=== PATIENT | female | born 1980 | race Caucasian/White ===

== ENCOUNTER 2016-11-12 10:23 | Emergency (ER) | payer OTHER ==
--- NOTE | 2016-11-12 10:59 | EDM.PDOC ---
ED HPI GENERAL MEDICAL PROBLEM - General Chief Complaint: General Stated Complaint: PAIN IN THE BACK OF HER NECK Time Seen by Provider: 11/12/16 10:45 - History of Present Illness INITIAL COMMENTS - FREE TEXT/NARRATIVE: HISTORY AND PHYSICAL: History of present illness: The patient is a 36-year-old female who follows with both our pain clinic, our family practice clinic and Dr. Cameron, as well as bone and joint specialist in [place] for lumbar back problems and presents today with a one-week history of pain/pressure at her left posterior neck and occipital area that radiates up into her scalp and down her left arm. The patient describes the discomfort as an aching pressure-like sensation in the posterior neck and it radiates up to the skull and it is worse with certain movements such as turning her head to the left. She has no diffuse headache no visual changes no neurosensory changes in her extremities and no recent trauma and no nausea or vomiting. The patient says that intermittently she will have a shooting nerve like pain down the posterior aspect of her left arm and she does feel little bit weaker in the arm but it is not that significant. She is a true being the weakness more to her discomfort. She has been using 400 mg of ibuprofen for pain and has not followed up with any of her providers for this. 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 The patient was more concerned because the symptoms have not abated over the last one week Review of systems: As per history of present illness and below otherwise all systems reviewed and negative. Past medical history: As per history of present illness and as reviewed below otherwise noncontributory. Surgical history: As per history of present illness and as reviewed below otherwise noncontributory. Social history: No reported history of drug or alcohol abuse. Family history: As per history of present illness and as reviewed below otherwise noncontributory. Physical exam: Gen.: Well-developed well-nourished female who is nontoxic and moves easily in the ED without distress and vital signs have been reviewed by me HEENT: Atraumatic, normocephalic, pupils reactive, negative for conjunctival pallor or scleral icterus, mucous membranes moist, throat clear, neck supple, nontender, trachea midline. TMs are normal bilaterally, there are no midline step-offs tenderness or defects of the cervical spine but there is some reproducible tenderness when I palpate the trapezius on the left as well as the cervical paraspinals on the left. There is no upper back tenderness in the musculature and no scapular tenderness. The patient has full range of motion of the left upper extremities without defects or deficits. On palpation of the scalp on the left there is some mild tenderness but there is no occipital groove tenderness on discrete palpation of this region. Mastoid tenderness or redness Lungs: Clear to auscultation, breath sounds equal bilaterally, chest nontender. Heart: S1S2, regular rate and rhythm no overt murmurs Back: There are no midline step-offs tenderness defects of the thoracic or lumbar spine and no CVA tenderness Pelvis: Stable nontender. Genitourinary: Deferred. Rectal: Deferred. Extremities: Atraumatic, negative for cords or calf pain full range of motion without any defects or deficits. Neurovascular unremarkable. Neuro: Awake, alert, oriented. Cranial nerves II through XII unremarkable. Cerebellum unremarkable. Motor and sensory unremarkable throughout. Exam nonfocal. On my evaluation I did not note any motor strength discrepancies right versus left and normal tone is throughout the upper extremities Diagnostics: CT scan of the head and cervical spine Therapeutics: [] I discussed with the patient that we perform CT scans but that she did not meet criteria for MRI and that at this point we might be able to gain some valuable information performing scans. She is interested in doing that and as she took some ibuprofen at home where going to hold off any more medications at this time as she is driving herself home. I did advise her that I may not get to the bottom of this problem but that we could do the testing that we had available here and obtain what information we can. She is happy with this plan. I did discuss all testing results with the patient and she states she has an appointment with Dr. Cameron in about a half an hour and I recommended that she go there. Patient does have Flexeril at home but she is only taking 5 mg a dose and she does not want a new prescription she would like to just increase the dose to the 10 mg and see how she does. Impression: Cervical muscle spasms/pain with episodic radiculopathy stable Definitive disposition and diagnosis as appropriate pending reevaluation and review of above. occipital area Pain Score (Numeric/FACES): 7 Left Side of Occupital Area Pain Score (Numeric/FACES): 5 - Related Data Allergies Allergy/AdvReac Type Severity Reaction Status Date / Time Seasonal allergies Allergy Itching Uncoded 11/12/16 10:34 Home Meds: Home Meds . 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: Musculoskeletal History: Reports: Other (See Below) Other Musculoskeletal History: piriformes of left thigh Social & Family History - Family History Family Medical History: Noncontributory - Tobacco Use Smoking Status *Q: Never Smoker - Caffeine Use Caffeine Use: Reports: Coffee Caffeine Use Comment: 1 cup daily - Alcohol Use Days Per Week of Alcohol Use: 0 Number of Drinks Per Day: 0 Total Drinks Per Week: 0 - Recreational Drug Use Recreational Drug Use: No Drug Use in Last 12 Months: No ED ROS GENERAL - Review of Systems Review Of Systems: ROS reveals no pertinent complaints other than HPI. ED EXAM, GENERAL - Physical Exam Exam: See Below (See dictation) Course - Vital Signs Last Recorded V/S: Last Vital Signs Temp 36.8 C 11/12/16 12:08 Pulse 78 11/12/16 12:08 Resp 18 11/12/16 12:08 BP 125/78 11/12/16 12:08 Pulse Ox 100 11/12/16 12:08 - Orders/Labs/Meds Orders: Active Orders 24 hr Category Date Time Status Cervical Spine wo Cont [CT] Stat Exams 11/12/16 10:58 Taken Head wo Cont [CT] Stat Exams 11/12/16 10:58 Taken Departure - Departure Time of Disposition: 13:04 Disposition: Home, Self-Care 01 Condition: Good Clinical Impression: Cervical radiculopathy, Cervical muscle pain - Discharge Information Forms: ED Department Discharge Additional Instructions: The following information is given to patients seen in the emergency department who are being discharged to home. This information is to outline your options for follow-up care. We provide all patients seen in our emergency department with a follow-up referral. The need for follow-up, as well as the timing and circumstances, are variable depending upon the specifics of your emergency department visit. If you don't have a primary care physician on staff, we will provide you with a referral. We always advise you to contact your personal physician following an emergency department visit to inform them of the circumstance of the visit and for follow-up with them and/or the need for any referrals to a consulting specialist. The emergency department will also refer you to a specialist when appropriate. This referral assures that you have the opportunity for followup care with a specialist. All of these measure are taken in an effort to provide you with optimal care, which includes your followup. Under all circumstances we always encourage you to contact your private physician who remains a resource for coordinating your care. When calling for followup care, please make the office aware that this follow-up is from your recent emergency room visit. If for any reason you are refused follow-up, please contact the [facility] emergency department at and ask to speak to the emergency department charge nurse. [facility] Primary care- Internal [place] [address] Use the Flexeril that you have at the appropriate dose and add ibuprofen. Please go to your appointment with Dr. Ortiz today and return to ER as needed and as discussed - My Orders Last 24 Hours: My Active Orders 11/12/16 10:58 Cervical Spine wo Cont [CT] Stat Head wo Cont [CT] Stat - Assessment/Plan Last 24 Hours: My Active Orders 11/12/16 10:58 Cervical Spine wo Cont [CT] Stat Head wo Cont [CT] Stat
[2016-11-12 13:13] VITALS: BP 135/67
--- NOTE | 2016-11-12 14:32 | CT ---
EXAM DATE: 11/12/16 PATIENT'S AGE: 36 Patient: LACY FERNANDEZ Facility: [place], [place] Site . Site : 1980 Study: CT Spine Cervical -11/12/2016 12:14:49 PM Ordering Physician: Gabriella Matthews Final Report: HISTORY: Pain back of head, left-sided numbness. TECHNIQUE: The cervical spine was scanned axial plane without IV contrast. Reconstructed bone windows were obtained. Sagittal reconstructions were performed. FINDINGS: Prevertebral soft tissues are normal. The thyroid is unremarkable. No apical pneumothorax. There is decreased lordosis present. There is mild uncovertebral joint arthropathy at C2-3, C3-4 and C4-5. No fracture lines are seen. No dramatic subluxation. IMPRESSION: 1. Loss of lordosis. This may be a result of muscle spasm versus positioning. 2. Mild uncovertebral joint arthropathy at C2-3, C3-4 and C4-5. 3. No acute fracture or traumatic subluxation. Dictated by Loretta Britt MD @ 11/12/2016 12:37:28 PM Dictated by: Loretta Britt MD @ 11/12/2016 12:37:58 (Electronic Signature) Report Signed by Proxy. JOSUE
--- NOTE | 2016-11-12 14:32 | CT ---
EXAM DATE: 11/12/16 PATIENT'S AGE: 36 Patient: LACY FERNANDEZ Facility: [place], [place] Site . Site : 1980 Study: CT Head [id number]/21/2017 12:27:14 PM Ordering Physician: Gabriella Matthews Final Report: HISTORY: Pain back of head, left-sided numbness. TECHNIQUE: The head was scanned in the axial plane at 3 mm intervals without IV contrast. Reconstructed bone windows were obtained as well as sagittal and coronal reconstructions. FINDINGS: The visualized paranasal sinuses and mastoid air cells are well aerated. The calvarium is intact. The ventricles and sulci are normal size, shape and position. No intra-axial mass, edema images identified. No extra-axial fluid collections are seen. Briceno-white differentiation is preserved. IMPRESSION: No acute intracranial pathology or bleed. Dictated by Loretta Britt MD @ 11/12/2016 12:33:33 PM Dictated by: Loretta Britt MD @ 11/12/2016 12:33:36 (Electronic Signature) Report Signed by Proxy. [facility]
== END 2016-11-12 13:12 | disposition home or self-care (01) ==
LOC: MW.ED 10:23
DX: M54.12 Radiculopathy, cervical region (principal); M79.1 Myalgia
CPT/HCPCS: 70450; 70450-26; 72125; 72125-26; 99284; 99284-25

== ENCOUNTER 2016-11-17 17:27 | Emergency (ER) | payer OTHER ==
[2016-11-17] MEDS ORDERED: Ondansetron 4 MG/2 ML SDV IVPUSH ONE (17:46)
[2016-11-17] MEDS ORDERED: diphenhydrAMINE 50 MG/ML SDV IVPUSH ONE (17:46)
[2016-11-17] MEDS ORDERED: Metoclopramide 10 MG/2 ML SDV IV ONE (17:46)
[2016-11-17] MEDS ORDERED: Ketorolac 30 MG/ML SDV IVPUSH ONE (17:46)
[2016-11-17] MEDS ORDERED: Sodium Chloride 0.9% 1,000 ML IV ONE (17:46)
--- NOTE | 2016-11-17 17:49 | EDM.PDOC ---
ED HPI GENERAL MEDICAL PROBLEM - General Chief Complaint: Headache Stated Complaint: PRESSURE HEAD/NUMBNESS RT ARM/TINGLY Time Seen by Provider: 11/17/16 17:40 - History of Present Illness INITIAL COMMENTS - FREE TEXT/NARRATIVE: HISTORY AND PHYSICAL: History of present illness: Patient 36-year-old female presents with a concern of headache she is seen in the ED the other day and treated as possible muscle skeletal origin with this left neck and head pain and spasm this seems to be more frontal and at the apex today there's been no vomiting or other neurological signs or symptoms she is scheduled to have an MRI tomorrow. Her workup the other day did include a CT scan which was reportedly negative Review of systems: As per history of present illness and below otherwise all systems reviewed and negative. Past medical history: As per history of present illness and as reviewed below otherwise noncontributory. Surgical history: As per history of present illness and as reviewed below otherwise noncontributory. Social history: No reported history of drug or alcohol abuse. Family history: As per history of present illness and as reviewed below otherwise noncontributory. Physical exam: HEENT: Atraumatic, normocephalic, pupils reactive, negative for conjunctival pallor or scleral icterus, mucous membranes moist, throat clear, neck supple, nontender, trachea midline. Lungs: Clear to auscultation, breath sounds equal bilaterally, chest nontender. Heart: S1S2, regular, negative for clicks, rubs, or JVD. Abdomen: Soft, nondistended, nontender. Negative for masses or hepatosplenomegaly. Negative for costovertebral tenderness. Pelvis: Stable nontender. Genitourinary: Deferred. Rectal: Deferred. Extremities: Atraumatic, negative for cords or calf pain. Neurovascular unremarkable. Neuro: Awake, alert, oriented anxious. Cranial nerves II through XII unremarkable. Cerebellum unremarkable. Motor and sensory unremarkable throughout. Exam nonfocal. Diagnostics: None Therapeutics: Normal saline 1 L bolus and Toradol 30 mg IV Zofran 4 mg IV Reglan 10 mg IV Benadryl 2 mg IV Impression: #1 cephalgia Definitive disposition and diagnosis as appropriate pending reevaluation and review of above. top of head Pain Score (Numeric/FACES): 8 - Related Data Allergies Allergy/AdvReac Type Severity Reaction Status Date / Time Seasonal allergies Allergy Itching Uncoded 11/17/16 17:42 Home Meds: Home Meds . 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: Musculoskeletal History: Reports: Other (See Below) Other Musculoskeletal History: piriformes of left thigh Social & Family History - Family History Family Medical History: Noncontributory - Tobacco Use Smoking Status *Q: Never Smoker - Caffeine Use Caffeine Use: Reports: Coffee Caffeine Use Comment: 1 cup daily - Alcohol Use Days Per Week of Alcohol Use: 0 Number of Drinks Per Day: 0 Total Drinks Per Week: 0 - Recreational Drug Use Recreational Drug Use: No Drug Use in Last 12 Months: No ED ROS GENERAL - Review of Systems Review Of Systems: ROS reveals no pertinent complaints other than HPI. ED EXAM, GENERAL - Physical Exam Exam: See Below (See dictation) Course - Vital Signs Last Recorded V/S: Last Vital Signs Temp 36.2 C 11/17/16 17:37 Pulse 70 11/17/16 19:45 Resp 16 11/17/16 19:45 BP 113/58 L 11/17/16 19:45 Pulse Ox 97 11/17/16 19:45 - Orders/Labs/Meds Meds: Medications Discontinued Medications Generic Name Dose Route Start Last Admin Trade Name Sarah PRN Reason Stop Dose Admin Diphenhydramine HCl 50 mg 11/17/16 17:46 11/17/16 19:05 Benadryl IVPUSH 11/17/16 17:47 50 mg ONETIME ONE Administration Sodium Chloride 1,000 mls @ 999 mls/hr 11/17/16 17:46 11/17/16 18:55 Normal Saline IV 11/17/16 18:46 999 mls/hr STAT ONE Administration Ketorolac Tromethamine 30 mg 11/17/16 17:46 11/17/16 19:02 Toradol IVPUSH 11/17/16 17:47 30 mg ONETIME ONE Administration Metoclopramide HCl 10 mg 11/17/16 17:46 11/17/16 19:09 Reglan IV 11/17/16 17:47 10 mg ONETIME ONE Administration Ondansetron HCl 4 mg 11/17/16 17:46 11/17/16 18:57 Zofran IVPUSH 11/17/16 17:47 4 mg ONETIME ONE Administration Departure - Departure Time of Disposition: 19:48 Disposition: Home, Self-Care 01 Condition: Good Clinical Impression: Cephalgia - Discharge Information Forms: ED Department Discharge Additional Instructions: The following information is given to patients seen in the emergency department who are being discharged to home. This information is to outline your options for follow-up care. We provide all patients seen in our emergency department with a follow-up referral. The need for follow-up, as well as the timing and circumstances, are variable depending upon the specifics of your emergency department visit. If you don't have a primary care physician on staff, we will provide you with a referral. We always advise you to contact your personal physician following an emergency department visit to inform them of the circumstance of the visit and for follow-up with them and/or the need for any referrals to a consulting specialist. The emergency department will also refer you to a specialist when appropriate. This referral assures that you have the opportunity for followup care with a specialist. All of these measure are taken in an effort to provide you with optimal care, which includes your followup. Under all circumstances we always encourage you to contact your private physician who remains a resource for coordinating your care. When calling for followup care, please make the office aware that this follow-up is from your recent emergency room visit. If for any reason you are refused follow-up, please contact the [facility] emergency department at and asked to speak to the emergency department charge nurse. Keep scheduled appointment for MRI follow-up primary medical doctor 1-2 days return as needed as discussed
[2016-11-17 19:58] VITALS: BP 132/88
== END 2016-11-17 19:56 | disposition home or self-care (01) ==
LOC: MW.ED 17:27
DX: R51 Headache (principal); M54.2 Cervicalgia
CPT/HCPCS: 96361; 96374; 96375; 99283; J1200; J1885; J2405; J2765; J7040

== ENCOUNTER 2016-12-22 10:15 | Day surgery (SDC) | payer OTHER ==
[~2016-12-22 10:15] MED LIST: Lactated Ringers 1,000 ML IV SCH
[2016-12-22] MEDS ORDERED: Midazolam 1 MG/ML 2 ML SDV ONE (10:53)
[2016-12-22] MEDS ORDERED: Propofol 200 MG/20 ML SDV ONE (10:53)
--- NOTE | 2016-12-22 11:13 | PCM.PREANE ---
Preanesthetic Assessment - Anesthesia/Transfusion/Family Hx Anesthesia History: Prior Anesthesia Without Reaction Other Type of Anesthesia Reaction Comment: reports "little motion sickness", Denies any problem in the past w/anesthes Family History of Anesthesia Reaction: No Transfusion History: No Prior Transfusion(s) Intubation History: Unknown - Review of Systems General: No Symptoms Pulmonary: No Symptoms Cardiovascular: No Symptoms Gastrointestinal: Decreased Appetite Neurological: No Symptoms Other: Reports: None - Physical Assessment Height: 1.63 m Weight: 52.617 kg ASA Class: 2 Mental Status: Alert & Oriented x3 Airway Class: Mallampati = 2 Dentition: Reports: Normal Dentition Thyro-Mental Finger Breadths: 3 Mouth Opening Finger Breadths: 3 ROM/Head Extension: Full Lungs: Clear to Auscultation, Normal Respiratory Effort Cardiovascular: Regular Rate, Regular Rhythm - Lab Values: Laboratory Last Values Urine HCG, Qual NEGATIVE (NEGATIVE) 12/22/16 10:19 - Allergies Allergies/Adverse Reactions: Allergies Allergy/AdvReac Type Severity Reaction Status Date / Time duloxetine Allergy Dizziness Verified 12/18/16 09:28 hydrocodone Allergy Nausea Verified 12/18/16 09:28 Seasonal allergies Allergy Itching Uncoded 11/17/16 17:42 - Blood Blood Available: No - Anesthesia Plan Pre-Op Medication Ordered: None - Acknowledgements Anesthesia Type Planned: MAC Pt an Appropriate Candidate for the Planned Anesthesia: Yes Alternatives and Risks of Anesthesia Discussed w Pt/Guardian: Yes Pt/Guardian Understands and Agrees with Anesthesia Plan: Yes PreAnesthesia Questionnaire - Past Health History Medical/Surgical History: Denies Medical/Surgical History Gastrointestinal History: Reports: Other (See Below) Other Gastrointestinal History: occasional heartburn and difficulty swallowing Genitourinary History: Reports: None 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 to dyspepsia) - Infectious Disease History Infectious Disease History: Reports: Other (See Below) (West Nile virus 11/08) - Past Surgical History Head Surgeries/Procedures: Reports: None Female Surgical History: Reports: Cystectomy Other Female Surgeries/Procedures: laparoscopy with ovarian cystectomy, hysteroscopy with polypectomy - SUBSTANCE USE Smoking Status *Q: Never Smoker Tobacco Use Within Last Twelve Months:  Second Hand Smoke Exposure: No Days Per Week of Alcohol Use: 0 Number of Drinks Per Day: 0 Total Drinks Per Week: 0 Recreational Drug Use History: No - HOME MEDS Home Medications: Home Meds Diazepam [Valium] 5 mg PO ASDIRECTED PRN 12/18/16 [History] Famotidine 20 mg PO BID 12/18/16 [History] - CURRENT (IN HOUSE) MEDS Current Meds: Current Medications Lactated Ringer's (Ringers, Lactated) 1,000 mls @ 125 mls/hr IV ASDIRECTED NOAM Last Admin: 12/22/16 10:53 Dose: 125 mls/hr Discontinued Medications Midazolam HCl (Versed 1 Mg/Ml) Confirm Administered Dose 2 mg .ROUTE .STK-MED ONE Stop: 12/22/16 10:54 Propofol (Diprivan 20 Ml) Confirm Administered Dose 400 mg .ROUTE .STK-MED ONE Stop: 12/22/16 10:54
[2016-12-22] MEDS ORDERED: Lactated Ringers 1,000 ML IV SCH (12:15)
--- NOTE | 2016-12-22 12:15 | PCM.OPNOTE ---
- General Post-Op/Procedure Note Date of Surgery/Procedure: 12/22/16 Operative Procedure(s): Esophagogastroduodenoscopy with gastric and esophageal biopsy. Colonoscopy with cecal and rectal biopsies. Pre Op Diagnosis: Epigastric pain, dyspepsia and weight loss. Change in bowel habits with unexplained weight loss. Post-Op Diagnosis: Gastritis with esophagitis. No evidence of colonic neoplasia. Anesthesia Technique: MAC (ASA II) Primary Surgeon: Daljit Coleman Condition: Good Free Text/Narrative:: Dictation [id number] CPT CODE [id number]
--- NOTE | 2016-12-22 12:29 | OR ---
SURGEON: Daljit Coleman M.D. DATE OF PROCEDURE: 12/22/2016 PROCEDURE PERFORMED: Colonoscopy with gastric and esophageal biopsies. ANESTHESIA: MAC. ASA CLASSIFICATION: II. PREOPERATIVE DIAGNOSES: Epigastric pain with dyspepsia and unexplained weight loss. POSTOPERATIVE DIAGNOSES: Gastritis with esophagitis and hiatal hernia. DESCRIPTION OF PROCEDURE: The patient was taken to the endoscopy room and positioned on the endoscopy table in a supine position. Time-out was called for appropriate identification of the patient and procedure. Bite-block was placed between the patient's teeth. Monitored anesthesia care was provided. The gastroscope was inserted into the mouth and advanced without difficulty through the esophagus and stomach, into the duodenum, where examination was carried out in a retrograde fashion. The duodenum shows no acute inflammatory changes or ulcerations. The stomach does show [id number] gastritis. Antral biopsies were obtained to look for the presence of Helicobacter pylori. The gastroscope was retroflexed to visualize the proximal stomach. The patient does have a hiatal hernia and some proximal gastritis along with esophagitis. The gastroscope was straightened and slowly withdrawn carefully visualizing both the greater and lesser curvatures. The GE junction was well defined, but does show some inflammatory changes. Biopsies of the distal esophagus were obtained and sent for separate histologic analysis. The mid and proximal esophagus showed no acute ulcerations. The esophageal motility appears quite good. The vocal cords were visualized as the scope was withdrawn and noted to move symmetrically. The gastroscope was then removed with the patient having tolerated the procedure well. Following colonoscopy, she was taken to recovery room in a stable condition. KHADRA / ABRAN /[id number]
--- NOTE | 2016-12-22 12:32 | OR ---
SURGEON: Daljit Coleman M.D. DATE OF PROCEDURE: 12/22/2016 OPERATION PERFORMED: Colonoscopy with biopsies of the cecum and rectum. ANESTHESIA: MAC. ASA CLASSIFICATION: II. PREOPERATIVE DIAGNOSIS: Change in bowel habits with unexplained weight loss. POSTOPERATIVE DIAGNOSIS: Change in bowel habits with unexplained weight loss. DESCRIPTION OF PROCEDURE: With the patient having completed esophagogastroduodenoscopy with biopsy, she was now positioned in the left lateral decubitus position. The colonoscope was inserted into the rectum and advanced with minimal difficulty to the cecum where the colonoscope was retroflexed to visualize the ascending colon from below. The colonoscope was retroflexed in the cecum to visualize the ascending colon from below, then straightened and slowly withdrawn. There were some nonspecific inflammatory changes noted in the cecum and biopsies of this area were taken. The ascending colon, hepatic flexure, transverse colon, splenic flexure, descending colon, and sigmoid colon showed no tumors, polyps, diverticula, or angiodysplastic changes. There were some mild inflammatory changes also noted in the rectum and biopsies of this area were also obtained. The colonoscope was retroflexed in the rectum to visualize the anal orifice from above. No acute hemorrhoidal changes were noted. The colonoscope was then straightened, the rectum aspirated, and the colonoscope removed. The patient tolerated the procedure well and was taken to recovery room in stable condition. KHADRA OSULLIVAN /[id number]
[2016-12-22 12:51] VITALS: BP 108/64
== END 2016-12-22 12:55 | disposition home or self-care (01) ==
LOC: MW.SDS 10:15
PROVIDERS: ATTEND Surgery
PROC: 0DBH8ZX Excision of Cecum, Via Natural or Artificial Opening Endoscopic, Diagnostic (ICD-10-PCS; principal; 2016-12-22)
PROC: 0DBP8ZX Excision of Rectum, Via Natural or Artificial Opening Endoscopic, Diagnostic (ICD-10-PCS; 2016-12-22)
PROC: 0DB58ZX Excision of Esophagus, Via Natural or Artificial Opening Endoscopic, Diagnostic (ICD-10-PCS; 2016-12-22)
PROC: 0DB68ZX Excision of Stomach, Via Natural or Artificial Opening Endoscopic, Diagnostic (ICD-10-PCS; 2016-12-22)
DX: K29.50 Unspecified chronic gastritis without bleeding (principal); K20.9 Esophagitis, unspecified; K52.9 Noninfective gastroenteritis and colitis, unspecified; K62.89 Other specified diseases of anus and rectum; F41.9 Anxiety disorder, unspecified; F32.9 Major depressive disorder, single episode, unspecified; M79.1 Myalgia; G89.4 Chronic pain syndrome; G57.02 Lesion of sciatic nerve, left lower limb; R63.4 Abnormal weight loss; Z88.5 Allergy status to narcotic agent; Z88.8 Allergy status to other drugs, medicaments and biological substances; Z79.899 Other long term (current) drug therapy; Z98.890 Other specified postprocedural states
CPT/HCPCS: 43239; 45380; 81025; J2250; J7120; 00740; 88305; 88312; J2704

== ENCOUNTER 2025-03-14 16:43 | Emergency (ER) | payer BC ==
[2025-03-14 17:26] LABS: BASOPHILS ABSOLUTE AUTO 0.02 K/uL (0.00-0.20); BASOPHILS PERCENT AUTO 0.2 % (0.0-1.0); EOSINOPHILS ABSOLUTE AUTO 0.02 K/uL (0.00-0.45); EOSINOPHILS PERCENT AUTO 0.2 % (0.0-6.0); IMMATURE GRAN ABSOLUTE AUTO 0.04 K/uL (0.00-0.05); IMMATURE GRAN PERCENT AUTO 0.3 % (0.0-0.4); LYMPHOCYTES ABSOLUTE AUTO 1.63 K/uL (1.00-4.80); LYMPHOCYTES PERCENT AUTO 13.5 % (24.0-44.0); MEAN PLATELET VOLUME 9.8 fL (9.4-12.3); MONOCYTES ABSOLUTE AUTO 0.41 K/uL (0.00-0.80); MONOCYTES PERCENT AUTO 3.4 % (0.0-8.0); NEUTROPHILS ABSOLUTE AUTO 9.96 K/uL (1.80-7.70); NEUTROPHILS PERCENT AUTO 82.4 % (41.0-71.0); NRBC ABSOLUTE 0.00 K/uL (0.00-0.02); NRBC PERCENT 0.0 /100WBC (0.0-0.2); PLATELET COUNT,PLT 269 K/uL (150-400); RED BLOOD CELL COUNT 4.69 M/uL (4.10-5.30); WHITE BLOOD CELL COUNT,WBC 12.08 K/uL (3.9-11.3)
[2025-03-14 17:29] LABS: APPEARANCE,URINE CLEAR; GLUCOSE,URINE NEGATIVE (NEGATIVE); OCCULT BLOOD,URINE NEGATIVE (NEGATIVE)
[2025-03-14 17:55] LABS: A/G RATIO 1.3 (0.9-1.6); ALANINE AMINOTRANSFERASE,ALT 27.0 IU/L (14-63); ASPARTATE AMNIOTRANSFERASE,AST 24.0 IU/L (15-37); BILIRUBIN TOTAL 0.5 mg/dL (0.2-1.0); BLOOD UREA NITROGEN,BUN 10.0 mg/dL (7.0-18.0); CARBON DIOXIDE,CO2 22.7 mmol/L (21.0-32.0); CHLORIDE,CL 105.0 mmol/L (98-107); CREATININE 0.8 mg/dL (0.6-1.0); EST CRCL DRUG DOSING (CG) 79.91 mL/min; ESTIMATED GFR 93.0 mL/min (>60); GLUCOSE RANDOM 106.0 mg/dL (74-106); POTASSIUM,K 3.7 mmol/L (3.5-5.1); PROTEIN TOTAL,TP 7.5 g/dL (6.4-8.2); SODIUM,NA 139.0 mmol/L (136-145)
[2025-03-14] MEDS: Iopamidol 755 MG/ML 500 ML Multipack Bottle IVPUSH STA (18:09)
[2025-03-14 18:48] VITALS: BP 112/79; PULSE 76
== END 2025-03-14 18:48 | disposition home or self-care (01) ==
LOC: MW.ED 16:43
DX: D25.9 Leiomyoma of uterus, unspecified (principal); R10.10 Upper abdominal pain, unspecified; Z75.3 Unavailability and inaccessibility of health-care facilities; Z88.8 Allergy status to other drugs, medicaments and biological substances; Z88.0 Allergy status to penicillin; Z79.899 Other long term (current) drug therapy
CPT/HCPCS: 36415; 74177; 80053; 81003; 83690; 85025; 99284; Q9967; 99283

== ENCOUNTER 2025-03-21 07:24 | Day surgery (SDC) | payer BC ==
[~2025-03-21 07:24] MED LIST changes: -Lactated Ringers 1,000 ML IV SCH; +Scopalamine 1mg/3day Transdermal Patch TOP ONE; +Sodium Chloride 0.9% 10 ML Syringe FLUSH PRN; +Sodium Chloride 0.9% 2.5 ML Syringe FLUSH PRN
[2025-03-21] MEDS ORDERED: Propofol 200 MG/20 ML SDV ONE (07:33)
[2025-03-21] MEDS ORDERED: Ketamine HCL/NACL, ISO-OSM 50 MG/5 ML Syringe ONE (07:34)
[2025-03-21] MEDS ORDERED: dexmedeTOMIDine HCl 200 MCG/2 ML SDV ONE (07:34)
[2025-03-21] MEDS ORDERED: Ropivacaine 0.5% 5 MG/ML 30 ML SDV ONE (07:38)
[2025-03-21] MEDS: Scopalamine 1mg/3day Transdermal Patch TOP ONE (07:45)
[2025-03-21] MEDS: Lactated Ringers 1,000 ML IV SCH ×2 (08:10→18:17)
[2025-03-21 08:11] LABS: MEAN PLATELET VOLUME 9.7 fL (9.4-12.3); NRBC ABSOLUTE 0.00 K/uL (0.00-0.02); NRBC PERCENT 0.0 /100WBC (0.0-0.2); PLATELET COUNT,PLT 260 K/uL (150-400); RED BLOOD CELL COUNT 4.26 M/uL (4.10-5.30); WHITE BLOOD CELL COUNT,WBC 4.69 K/uL (3.9-11.3)
[2025-03-21] MEDS ORDERED: Naloxone 0.4 MG/ML SDV IVPUSH PRN (08:25)
[2025-03-21] MEDS ORDERED: fentaNYL 50 MCG/ML SDV IVPUSH PRN (08:25)
[2025-03-21] MEDS ORDERED: Albuterol 0.083% 2.5 MG/3 ML Neb Soln NEB PRN (08:25)
[2025-03-21] MEDS ORDERED: Ondansetron 4 MG/2 ML SDV IVPUSH PRN (08:25)
[2025-03-21 08:26] LABS: BLOOD UREA NITROGEN,BUN 11.0 mg/dL (7.0-18.0); CARBON DIOXIDE,CO2 23.7 mmol/L (21.0-32.0); CHLORIDE,CL 108.0 mmol/L (98-107); CREATININE 0.9 mg/dL (0.6-1.0); EST CRCL DRUG DOSING (CG) 71.03 mL/min; GLUCOSE RANDOM 100.0 mg/dL (74-106); POTASSIUM,K 3.6 mmol/L (3.5-5.1); SODIUM,NA 140.0 mmol/L (136-145)
[2025-03-21 08:28] LABS: ESTIMATED GFR 80.0 mL/min (>60)
[2025-03-21] MEDS ORDERED: Ondansetron 4 MG/2 ML SDV ONE (09:39)
[2025-03-21] MEDS ORDERED: Dexamethasone 4 MG/ML 5 ML MDV ONE (09:39)
[2025-03-21] MEDS ORDERED: Magnesium Sulfate (4.06 MEQ/ML) 5 GM/10 ML SDV ONE (09:41)
[2025-03-21] MEDS ORDERED: propofoL 500 MG/50 ML 50 ML ONE ×2 (10:26)
[2025-03-21] MEDS ORDERED: Fluorescein 5 ML Vial ONE (11:03)
[2025-03-21] MEDS ORDERED: Ketorolac 30 MG/ML SDV ONE (11:08)
[2025-03-21] MEDS ORDERED: Acetaminophen/oxyCODONE 325-5 MG Tab PO PRN (11:34)
[2025-03-21] MEDS ORDERED: Promethazine 25 MG/ML SDV IM PRN (11:34)
[2025-03-21] MEDS: ceFAZolin 2 GM in Water For Injection, Sterile 20 ML IVPUSH ONE (13:29)
[2025-03-21] MEDS: Ketorolac 30 MG/ML SDV IVPUSH ONE (13:29)
[2025-03-21] MEDS: Acetaminophen/oxyCODONE 325-5 MG Tab PO PRN (15:19)
[2025-03-21] MEDS: Ondansetron 4 MG/2 ML SDV IVPUSH PRN (17:33)
[2025-03-21] MEDS: Ketorolac 30 MG/ML SDV IVPUSH PRN (20:39)
[2025-03-22 06:06] LABS: BASOPHILS ABSOLUTE AUTO 0.02 K/uL (0.00-0.20); BASOPHILS PERCENT AUTO 0.2 % (0.0-1.0); EOSINOPHILS ABSOLUTE AUTO 0.01 K/uL (0.00-0.45); EOSINOPHILS PERCENT AUTO 0.1 % (0.0-6.0); IMMATURE GRAN ABSOLUTE AUTO 0.05 K/uL (0.00-0.05); IMMATURE GRAN PERCENT AUTO 0.4 % (0.0-0.4); LYMPHOCYTES ABSOLUTE AUTO 1.47 K/uL (1.00-4.80); LYMPHOCYTES PERCENT AUTO 13.0 % (24.0-44.0); MEAN PLATELET VOLUME 10.0 fL (9.4-12.3); MONOCYTES ABSOLUTE AUTO 0.71 K/uL (0.00-0.80); MONOCYTES PERCENT AUTO 6.3 % (0.0-8.0); NEUTROPHILS ABSOLUTE AUTO 9.02 K/uL (1.80-7.70); NEUTROPHILS PERCENT AUTO 80.0 % (41.0-71.0); NRBC ABSOLUTE 0.00 K/uL (0.00-0.02); NRBC PERCENT 0.0 /100WBC (0.0-0.2); PLATELET COUNT,PLT 253 K/uL (150-400); RED BLOOD CELL COUNT 3.53 M/uL (4.10-5.30); WHITE BLOOD CELL COUNT,WBC 11.28 K/uL (3.9-11.3)
[2025-03-22 06:22] LABS: BLOOD UREA NITROGEN,BUN 7.0 mg/dL (7.0-18.0); CARBON DIOXIDE,CO2 25.5 mmol/L (21.0-32.0); CHLORIDE,CL 109.0 mmol/L (98-107); CREATININE 0.7 mg/dL (0.6-1.0); EST CRCL DRUG DOSING (CG) 91.32 mL/min; GLUCOSE RANDOM 95.0 mg/dL (74-106); POTASSIUM,K 3.8 mmol/L (3.5-5.1); SODIUM,NA 139.0 mmol/L (136-145)
[2025-03-22 06:25] LABS: ESTIMATED GFR 109.0 mL/min (>60)
[2025-03-22 10:49] VITALS: BP 108/56; PULSE 74
== END 2025-03-22 10:42 | disposition home or self-care (01) ==
LOC: MW.SDS 07:24 → MW.MS 13:27 → MW.SDS 03-22 10:42
PROVIDERS: ATTEND Obstetrics & Gynecology
DX: D25.1 Intramural leiomyoma of uterus (principal); D25.0 Submucous leiomyoma of uterus; D25.2 Subserosal leiomyoma of uterus; N80.03 Adenomyosis of the uterus; Z88.5 Allergy status to narcotic agent; Z88.6 Allergy status to analgesic agent; Z88.0 Allergy status to penicillin
CPT/HCPCS: 36415; 58552; 80048; 84703; 85025; 85027; 86850; 86900; 86901; A9270; J0665; J0690; J1100; J1171; J1596; J1885; J2405; J2704; J2795; J3475; J7120; 00944; 64488; J3490

== ENCOUNTER 2025-03-25 12:16 | Emergency (ER) | payer BC ==
[2025-03-25] MEDS: Nitrofurantoin Monohydrate/Macrocrystalline 100 MG Cap PO ONE (14:59)
[2025-03-25 15:00] LABS: BASOPHILS ABSOLUTE AUTO 0.03 K/uL (0.00-0.20); BASOPHILS PERCENT AUTO 0.3 % (0.0-1.0); EOSINOPHILS ABSOLUTE AUTO 0.07 K/uL (0.00-0.45); EOSINOPHILS PERCENT AUTO 0.6 % (0.0-6.0); IMMATURE GRAN ABSOLUTE AUTO 0.02 K/uL (0.00-0.05); IMMATURE GRAN PERCENT AUTO 0.2 % (0.0-0.4); LYMPHOCYTES ABSOLUTE AUTO 1.83 K/uL (1.00-4.80); LYMPHOCYTES PERCENT AUTO 16.8 % (24.0-44.0); MEAN PLATELET VOLUME 9.7 fL (9.4-12.3); MONOCYTES ABSOLUTE AUTO 0.44 K/uL (0.00-0.80); MONOCYTES PERCENT AUTO 4.0 % (0.0-8.0); NEUTROPHILS ABSOLUTE AUTO 8.53 K/uL (1.80-7.70); NEUTROPHILS PERCENT AUTO 78.1 % (41.0-71.0); NRBC ABSOLUTE 0.00 K/uL (0.00-0.02); NRBC PERCENT 0.0 /100WBC (0.0-0.2); PLATELET COUNT,PLT 323 K/uL (150-400); RED BLOOD CELL COUNT 4.60 M/uL (4.10-5.30); WHITE BLOOD CELL COUNT,WBC 10.92 K/uL (3.9-11.3)
[2025-03-25] MEDS: Lidocaine 2% 11 ML Jelly Filled Syringe MUCMEM STA (15:01)
[2025-03-25 15:21] LABS: A/G RATIO 1.2 (0.9-1.6); ALANINE AMINOTRANSFERASE,ALT 51.0 IU/L (14-63); ASPARTATE AMNIOTRANSFERASE,AST 33.0 IU/L (15-37); BILIRUBIN TOTAL 0.4 mg/dL (0.2-1.0); BLOOD UREA NITROGEN,BUN 10.0 mg/dL (7.0-18.0); CARBON DIOXIDE,CO2 25.4 mmol/L (21.0-32.0); CHLORIDE,CL 106.0 mmol/L (98-107); CREATININE 0.9 mg/dL (0.6-1.0); EST CRCL DRUG DOSING (CG) 71.03 mL/min; GLUCOSE RANDOM 128.0 mg/dL (74-106); POTASSIUM,K 3.8 mmol/L (3.5-5.1); PROTEIN TOTAL,TP 7.8 g/dL (6.4-8.2); SODIUM,NA 139.0 mmol/L (136-145)
[2025-03-25 15:22] LABS: ESTIMATED GFR 80.0 mL/min (>60)
[2025-03-25] MEDS: Ondansetron 4 MG Tab.DIS PO ONE (16:00)
[2025-03-25] MEDS: Acetaminophen/oxyCODONE 325-10 MG Tab PO ONE (16:09)
[2025-03-25] MEDS: Acetaminophen/HYDROcodone 325-5 MG Tab PO ONE (16:09)
[2025-03-25 17:16] LABS: APPEARANCE,URINE CLEAR; GLUCOSE,URINE NEGATIVE (NEGATIVE); OCCULT BLOOD,URINE NEGATIVE (NEGATIVE)
[2025-03-25 17:30] LABS: EPITHELIAL CELLS,URINE FEW (NONE-FEW)
[2025-03-25 17:36] VITALS: BP 113/73; PULSE 74
== END 2025-03-25 17:36 | disposition home or self-care (01) ==
LOC: MW.ED 12:16
DX: R39.89 Other symptoms and signs involving the genitourinary system (principal); Z79.899 Other long term (current) drug therapy; Z86.16 Personal history of COVID-19; Z88.0 Allergy status to penicillin; Z91.09 Other allergy status, other than to drugs and biological substances; Z88.8 Allergy status to other drugs, medicaments and biological substances; Z88.5 Allergy status to narcotic agent
CPT/HCPCS: 36415; 80053; 81001; 85025; 99283; A9270